=== PATIENT | male | born 1935 | race Caucasian/White ===

== ENCOUNTER 2020-02-23 11:03 | Inpatient (IN) | payer MEDICARE, OTHER, SELFPAY ==
[2020-02-23] VITALS (18 sets, daily range): BP systolic 133–143; BP diastolic 56–73; PULSE 68–83; RESP 14–22; TEMP 36.8–37.4; O2SAT 78–95
--- NOTE | ~2020-02-23 | XR_ITS ---
XR chest 1V portable DATE: 02/29/2020 09:00 INDICATION: Shortness of breath. Covid-positive. TECHNIQUE: Portable AP chest on 02/29/2020 at 0853 hours COMPARISON: 02/28/2020 portable AP chest at 0817 hours FINDINGS: Diffuse bilateral airspace disease relatively sparing right apex and left upper lung, stabl e or mildly increased in severity since 02/28/2020. Borderline or increased heart size. Aortic calcification and mild unfolding. No pleural effusion. Surgical clips, right axillary area consistent with prior axillary node dissection. Diffuse osteopenia. Degenerative spurring of the thoracic spine. IMPRESSION: Persistent extensive bilateral pulmonary infiltrates, stable or mildly increased since 02/28/2020 Reviewed, dictated and finalized at location B. P LEADER IMPRESSION: Persistent extensive bilateral pulmonary infiltrates, stable or mil dly increased since 02/28/2020
--- NOTE | ~2020-02-23 | XR_ITS ---
XR chest 1V portable 02/28/2020 08:25 Indication: Covid. Pneumonia. Procedure: AP portable chest Comparison: Comparison to multiple prior studies sequentially, with oldest reviewed study dated 02/2020. Findings: Heart size normal. Diffuse bilateral airspace disease unchanged. There is atherosclerosis. No significant pleural effusion or pneumothorax. Impression: 1: Stable diffuse bilateral airspace disease, edema versus pneumonia. Reviewed, dictated and finalized at location A. /R INSTRUCTOR Impression: 1: Stable diffuse bilateral airspace disease, edema versus pneumonia.
--- NOTE | ~2020-02-23 | XR_ITS ---
EXAMINATION: XR chest 1V portable DATE: 02/25/2020 01:36 INDICATION: Desaturations TECHNIQUE: frontal view of the chest was obtained. COMPARISON: Chest radiograph dated 02/23/2020 FINDINGS: Cardiomegaly with pulmonary vascular congestion. Subtle groundglass opacities throughout both lungs w ith central batwing configuration favoring pulmonary edema over pneumonia. Pleural parenchymal scarri ng at the apices, moderate on the right and mild on the left. No pleural effusion or pneumothorax. Co ronary artery stenting. Multiple surgical clips at the right axilla. IMPRESSION: 1. Cardiomegaly with pulmonary vascular congestion and groundglass opacities throughout both lungs wi th batwing configuration favoring congestive heart failure and mild pulmonary edema over pneumonia. Reviewed, dictated and finalized at location A. TRIMMER IMPRESSION: 1. Cardiomegaly with pulmonary vascular congestion and groundglass opacities th roughout both lungs with batwing configuration favoring congestive heart failur e and mild pulmonary edema over pneumonia.
--- NOTE | ~2020-02-23 | US_ITS ---
EXAMINATION: US venous doppler LE EXAM DATE: 02/26/2020 17:41 INDICATION: Left thigh pain, COVID +. Left leg pain. TECHNIQUE: Multiple grayscale, color flow and Doppler images of the lower extremity deep venous syste ms bilaterally were obtained and reviewed. There is no prior study for comparison. FINDINGS: Right side: The right common femoral, femoral and profunda veins demonstrate normal color flow, respi ratory variation, augmentation and compressibility. Compressibility, color flow confirmed within the right popliteal, posterior tibial, peroneal, and greater saphenous veins. Left side: The left common femoral, femoral and profunda veins demonstrate normal color flow, respira tory variation, augmentation and compressibility. Compressibility, color flow confirmed within the l eft popliteal, posterior tibial, peroneal, and greater saphenous veins. IMPRESSION: 1. No lower extremity deep venous thrombosis bilaterally. Reviewed, dictated and finalized at location A. F SERVICES MANAGER
--- NOTE | ~2020-02-23 | XR_ITS ---
EXAMINATION: XR chest 1V portable DATE: 02/23/2020 12:06 INDICATION: COVID positive. Shortness of breath. TECHNIQUE: frontal view of the chest was obtained. COMPARISON: None FINDINGS: Groundglass and reticular opacities the bilateral mid and lower lung zones. There is also bronchial w all thickening/peribronchial cuffing. No pleural effusion or pneumothorax. The cardiomediastinal silh ouette is normal. Surgical clips at the right axilla. IMPRESSION: 1. Interstitial and airspace opacities in the bilateral mid and lower lung zones with bronchial wall thickening/peribronchial cuffing. Differential would include pulmonary edema or pneumonia. Reviewed, dictated and finalized at location A. ON AND TIME STUDY TEACHER IMPRESSION: 1. Interstitial and airspace opacities in the bilateral mid and lower lung zone s with bronchial wall thickening/peribronchial cuffing. Differential would incl ude pulmonary edema or pneumonia.
--- NOTE | 2020-02-23 11:17 | ECG_ITS ---
Measurements Intervals [place] Rate: 82 P: 32 WI: 245 QRS: 10 QRSD: 91 T: 29 QT: 366 QTc: 429 Interpretive Statements SINUS RHYTHM WITH FIRST DEGREE AV BLOCK BORDERLINE R WAVE PROGRESSION, ANTERIOR LEADS CONSIDER INFERIOR INFARCT, AGE INDETERMINATE BORDERLINE ST ABNORMALITY- HIGH LATERAL LEADS ABNORMAL ECG Electronically Signed On 02-23-2020 15:15:05 ELECTRICIAN SUPERVISOR by Clifton De La Rosa D.O.
[2020-02-23 11:39] LABS: Alveolar/Arterial O2 Gradient 119.2 mmHg; Base Excess ABG -1.4 mEq/l (+/-2.0); Carboxyhemoglobin 0.8 % THb (0-2.0); Fractional Inspired Oxygen 30 %; HCO3 ABG 20.7 mEq/l (22.0-26.0); Methemoglobin ABG 0.2 %THb (0-1.5); Oxygen Content ABG 18.3 %vol (16.0-22.0); Oxygen Saturation ABG 93.6 % (95.0-100.0); Oxyhemoglobin 91.8 % THb (90.0-100.0); PCO2 ABG 28.1 mmHg (35.0-45.0); PO2 ABG 61.7 mmHg (80.0-100.0); PO2 FiO2 Ratio Arterial Blood 2.06 %; Reduced Hemoglobin 7.2 %THb (0-5.0); Total Hemoglobin 14.2 g/dL (12.0-18.0); pH ABG 7.485 (7.350-7.450)
[2020-02-23 11:40] LABS: Device NASAL CANNULA; Liters per Minute 2.5 LPM; Modified Allen's Test Pass; Site Drawn LEFT RADIAL
[2020-02-23 11:58] LABS: Hematocrit 39.5 % (42.0-52.0); Hemoglobin 13.8 g/dL (14.0-18.0); Immature Granulocyte Absolute 0.02 K/mm3 (0.00-0.031); Immature Granulocyte Percent A 0.4 % (0-0.5); Immature Platelet Fraction Pct 5.3 % (0.9-11.2); Lymphocytes Absolute Auto 0.39 K/mm3 (0.9-3.2); Lymphocytes Percent Auto 8.4 % (18.3-44.2); Mean Corpuscular HGB Conc 34.9 g/dl (32-36); Mean Corpuscular Hemoglobin 30.4 pg (26-34); Mean Platelet Volume 11.1 fl (7.4-10.4); Monocytes Absolute Auto 0.5 K/mm3 (0.1-0.6); Monocytes Percent Auto 10.5 % (2.6-8.5); Neutrophils Absolute Auto 3.8 K/mm3 (1.3-6.7); Neutrophils Percent Auto 80.7 % (45.5-73.1); Platelet Count Result 118 k/mm3 (150-375); Red Blood Count 4.54 M/mm3 (4.6-6.20); Red Cell Distribution Width 12.5 % (11.5-14.5); White Blood Count 4.7 K/mm3 (4.5-10.0)
[2020-02-23 12:11] LABS: Anion Gap 9 mmol/L (8-16); Blood Urea Nitrogen 31 mg/dL (9-20); Calcium 8.4 mg/dL (8.4-10.2); Carbon Dioxide 26 mmol/L (22-30); Chloride 97 mmol/L (98-107); Estimated CRCL calculation 37 ml/min; Estimated Glomerular Filt Rate 53; Glucose 282 mg/dL (75-110); Potassium 3.9 mmol/L (3.4-5.0); Sodium 132 mmol/L (137-145)
[2020-02-23 12:12] LABS: Lactic Acid Reflex 3.1 mmol/L (0.7-2.1)
[2020-02-23 12:27] LABS: Burr Cells 2+ (NORMAL); Ovalocytes 1+ (NORMAL); Platelet Estimate Decreased (Adequate)
[2020-02-23 12:38] LABS: NT Pro B Type Natriuretic Pept 578 PG/ML (5-100)
--- NOTE | 2020-02-23 13:44 | ED.SOB ---
HPI - SOB/Dyspnea General Chief Complaint: Shortness of Breath/Dyspnea Stated Complaint: Covid +, SOB Time Seen by Provider: 02/23/20 12:05 History of Present Illness HPI Narrative: Patient is an 84-year-old male who presents ER with cough and shortness of breath. Patient has history of COPD, diabetes, and hypertension. Reports on Karl Belkis he began to feel ill. He was developing cough and mild shortness of breath. It worsened so he was tested for COVID-19 and was positive on 02/20. Over the last 2 days his ability. Has significantly declined he is short of breath at rest and with any sort of exertion. No improvement with breathing treatments at home. Endorses fevers and chills. No chest pain or chest pressure. No known sick contacts. Related Data Home Medications Medication Instructions Recorded Confirmed Adult One Daily Multivitamin 1 tablet PO DAILY 02/23/20 02/23/20 Flonase 1 spray EACHNARE DAILY 02/23/20 02/23/20 ProAir HFA 2 puff Q4-6H PRN 02/23/20 02/23/20 Vitamin D3 1 tablet PO DAILY 02/23/20 02/23/20 atenolol 12.5 mg PO DAILY 02/23/20 02/23/20 atorvastatin 40 mg PO DAILY 02/23/20 02/23/20 brimonidine 1 drp OPHTHALMIC (EYE) BID 02/23/20 02/23/20 clopidogrel [Plavix] 75 mg PO DAILY 02/23/20 02/23/20 finasteride 0.5 mg PO DAILY 02/23/20 02/23/20 fluticasone propion-salmeterol 1 inh INHALATION Q12H 02/23/20 02/23/20 [Advair Diskus] hydrochlorothiazide 25 mg PO DAILY 02/23/20 02/23/20 latanoprost 1 drp OPHTHALMIC (EYE) HS 02/23/20 02/23/20 losartan 100 mg PO QPM 02/23/20 02/23/20 melatonin 5 mg PO HS PRN 02/23/20 02/23/20 metformin 500 mg PO BIDWM 02/23/20 02/23/20 nitroglycerin [Nitrostat] 0.4 mg SUBLINGUAL Q5M PRN 02/23/20 02/23/20 omeprazole 40 mg PO DAILY 02/23/20 02/23/20 Allergies Allergy/AdvReac Type Severity Reaction Status Date / Time atropine Allergy Unknown Verified 02/23/20 16:34 Review of Systems Review of Systems: All systems reviewed & are unremarkable except as noted in HPI and below Constitutional: Constitutional: Reports chills, Reports fatigue and Reports fever(s) ENT: Denies nasal congestion and Denies sore throat Cardiovascular: Cardiovascular: Denies chest pain and Denies radiating jaw, neck or arm pain Respiratory: Respiratory: Reports cough, Reports dyspnea and Reports wheezing Gastrointestinal: Gastrointestinal: Denies abdominal pain, Denies nausea and Denies vomiting PMFSH Past Medical History Medical History (Updated 02/23/20 @ 13:47 by Corbin Ny MD) BPH (benign prostatic hyperplasia) COPD (chronic obstructive pulmonary disease) Coronary artery disease Diabetes GERD (gastroesophageal reflux disease) Hypertension Family History Family History (Updated 02/23/20 @ 16:13 by Diana Mera RN) Mother Heart disease Father Skin cancer Social History Social History (Updated 02/23/20 @ 13:47 by Corbin Ny MD) Smoking status: Never smoker Alcohol intake: never Substance use: never Gender identity (if verbalized by the patient): Male Sexual Orientation (if Verbalized by the Patient): Straight or Heterosexual Spiritual care concerns: No Exam Narrative: Exam Narrative: GENERAL: Uncomfortable-appearing, well-nourished, and in no acute distress. HEAD: Normocephalic, atraumatic. EYES: PERRL and EOMI. CHEST: Bibasilar crackles. No respiratory distress. HEART: Regular rate and rhythm. Normal peripheral pulses. ABDOMEN: Soft, nontender, nondistended. EXTREMITIES: Normal range of motion. 2+ edema. SKIN: Warm, dry, no rash. NEURO: Alert and oriented x3. PSYCH: Normal mood and affect. Course Course Emergency Course: Admit to hospitalist. Satting well on nasal cannula. Will start dexamethasone. Vital Signs Vital signs: Vital Signs Pulse Rate 80 02/23/20 11:17 Respiratory Rate 14 02/23/20 11:17 Pulse Oximetry 94 02/23/20 11:17 Temperature 98.3 F 02/23/20 20:00 Pulse Rate 77 02/23/20 20:00 Respiratory Rate
[2020-02-23] MEDS: ACETAMINOPHEN 325 MG TABLET 650 MG PO (14:26)
[2020-02-23] MEDS: DEXAMETHASONE SOD PHOS INJ 4 MG/ML VIAL 6 MG IV PUSH (14:27)
[2020-02-23 14:54] LABS: Reflex Lactic Acid Yes or No Add Lactic
--- NOTE | 2020-02-23 16:09 | ADMGEN ---
This patient, Benedict Kaur, was admitted to [facility] Surg Room 328-01. Patient/family oriented to hospital policies and general routines including ID bracelet, bed and alarms, visiting hours, pain management, procedures, bathroom and other care routines, personal items, smoking policy, room service/diet, and visiting hours. Information on how to activate the Rapid Response Team has been discussed. Patient/Family are encouraged to report perceived risks to care and to ask questions if they do not understand what they are told or what they should do.
[2020-02-23 17:00] LABS: Lactic Acid 1.6 mmol/L (0.7-2.1)
--- NOTE | 2020-02-23 23:48 | PM.IMHP ---
H&P: HPI History of Present Illness Date/Time: 02/23/20 23:48 Chief Complaint: Shortness of breath Narrative: Benedict Kaur is a 84 year old male who lives home alone and has been self quarantine. 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 Patient lives at [facility] [place]. The patient came to the emergency room because he was more short of breath. The patient does have history of COPD diabetes and hypertension. The patient stated that he started to feel ill on [place] Belkis. He developed a cough and mild shortness of breath. The patient tested positive for COVID-19 on 02/21/2020. Patient has not had any improvement is breathing with treatments at home. He has had fever and chills. No chest pain or palpitations. No nausea vomiting or diarrhea. Was noted to be 78 at 1 time. Otherwise is oxygen level is anywhere from 90-94%. Patient was placed on 2 L per nasal cannula. He was started on Decadron IV. Interstitial and airspace opacities in the bilateral mid and lower lung zones with bronchial wall thickening peribronchial cuffing. Differential would be including pulmonary edema or pneumonia. The patient is also had history he a having a right upper lobectomy. The patient is able to lay flat. 7.485. CO2 was 28.1. PO2 was 61.7. His blood sugar was noted to be 282. Lactic was 3.1 repeat was 1.6. Patient was started on Decadron in the emergency room. Patient is being admitted to inpatient status on the date of service 02/23/2020. Review of Systems Review of Systems: All systems reviewed & are unremarkable except as noted in HPI and below Constitutional: Constitutional: Reports as per HPI and Reports no additional constitutional complaints Eyes: Eyes: Reports as per HPI and Reports no additional eye complaints ENT: Reports system reviewed and no additional complaints, except as documented and Reports Normal hearing present Cardiovascular: Cardiovascular: Reports no additional cardiovascular complaints Respiratory: Respiratory: Reports no additional respiratory complaints and Reports no additional respiratory complaints Gastrointestinal: Gastrointestinal: Reports as per HPI and Reports no additional gastrointestinal complaints Musculoskeletal: Musculoskeletal: Reports no additional musculoskeletal complaints Integumentary/Breasts: Skin/Breast: Reports system reviewed and no additional complaints, except as docu and Reports as per HPI Neurologic: Reports system reviewed and no additional complaints, except as documented, Reports as per HPI and Reports Normal hearing present Psychiatric: Psychiatric: Reports no additional psychiatric complaints and Reports as per HPI Endocrine: Endocrine: Reports no additional endocrine complaints Hematologic/Lymphatic: Hematologic/Lymphatic: Reports no additional hematologic/lymphatic complaints Allergic/Immunologic: Allergic/Immunologic: Reports no additional allergic/immunologic complaints [facility] Past Medical History Medical History (Updated 02/24/20 @ 00:10 by Deepa Abad NP) BPH (benign prostatic hyperplasia) Chronic GERD COPD (chronic obstructive pulmonary disease) Coronary artery disease Diabetes GERD (gastroesophageal reflux disease) Glaucoma History of CVA (cerebrovascular accident) Hyperlipidemia Hypertension Melanoma Surgical History Surgical History (Updated 02/24/20 @ 00:10 by Deepa Abad NP) Cataract extraction status Bilateral H/O angioplasty 1994 and 1995. 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
[2020-02-24] VITALS (10 sets, daily range): BP systolic 112–147; BP diastolic 49–71; PULSE 57–70; RESP 20–22; TEMP 36.2–36.7; O2SAT 90–94
[2020-02-24 00:23] LABS: Alanine Aminotransferase 25 U/L (4-50)
[2020-02-24] MEDS: LATANOPROST 0.005% OP SOLN 2.5 ML BTL 1 DROP EACH EYE ×2 (01:27→22:17)
[2020-02-24] MEDS: REMDESIVIR 200 MG/NS 250 ML 200 MG/250 ML BAG 250 MG IVPB (01:27)
[2020-02-24] MEDS: LOSARTAN POTASSIUM 100 MG TABLET PO ×2 (01:27→18:11)
[2020-02-24] MEDS: guaiFENesin/DEXTROMETHORPHAN 10 ML UDC PO ×3 (01:28→18:08)
[2020-02-24] MEDS: MELATONIN 5 MG TABLET PO (01:38)
[2020-02-24 06:35] LABS: Hematocrit 38.7 % (42.0-52.0); Hemoglobin 13.2 g/dL (14.0-18.0); Immature Granulocyte Absolute 0.01 K/mm3 (0.00-0.031); Immature Granulocyte Percent A 0.2 % (0-0.5); Immature Platelet Fraction Pct 5.9 % (0.9-11.2); Lymphocytes Absolute Auto 0.38 K/mm3 (0.9-3.2); Lymphocytes Percent Auto 8.6 % (18.3-44.2); Mean Corpuscular HGB Conc 34.1 g/dl (32-36); Mean Corpuscular Hemoglobin 29.5 pg (26-34); Mean Corpuscular Volume 86.4 fl (80-100); Mean Platelet Volume 10.9 fl (7.4-10.4); Monocytes Absolute Auto 0.8 K/mm3 (0.1-0.6); Monocytes Percent Auto 17.5 % (2.6-8.5); Neutrophils Absolute Auto 3.2 K/mm3 (1.3-6.7); Neutrophils Percent Auto 73.7 % (45.5-73.1); Platelet Count Result 118 k/mm3 (150-375); Red Blood Count 4.48 M/mm3 (4.6-6.20); Red Cell Distribution Width 12.4 % (11.5-14.5); White Blood Count 4.4 K/mm3 (4.5-10.0)
[2020-02-24] MEDS: ACETAMINOPHEN 325 MG TABLET 650 MG PO (07:23)
[2020-02-24 08:13] LABS: Glucose Point of Care 195 (65-105)
[2020-02-24 08:26] LABS: Alanine Aminotransferase 24 U/L (4-50); Albumin Level 3.2 g/dL (3.5-5.1); Alkaline Phosphatase 57 U/L (38-126); Anion Gap 7 mmol/L (8-16); Aspartate Amino Transferase 73 U/L (17-59); Bilirubin,Total 0.7 mg/dL (0.2-1.3); Blood Urea Nitrogen 33 mg/dL (9-20); CRP 15.5 mg/dL (<1.0); Calcium 8.1 mg/dL (8.4-10.2); Carbon Dioxide 26 mmol/L (22-30); Chloride 100 mmol/L (98-107); Estimated CRCL calculation 40 ml/min; Estimated Glomerular Filt Rate 58; Glucose 220 mg/dL (75-110); Magnesium 1.7 mg/dL (1.6-2.3); Potassium 4.4 mmol/L (3.4-5.0); Sodium 133 mmol/L (137-145)
[2020-02-24] MEDS: MAGNESIUM SULF 2 GM/WATER 50ML 2 GM/50 ML BAG IVPB (09:07)
[2020-02-24] MEDS: BRIMONIDINE TARTRATE 0.15% 5 ML OPHTH SOLN 1 DROP EACH EYE ×2 (09:08→18:09)
[2020-02-24] MEDS: hydroCHLOROthiazide 25 MG TABLET PO (09:08)
[2020-02-24] MEDS: ENOXAPARIN 40 MG/0.4 ML SYRINGE SUB-Q ×2 (09:08→22:17)
[2020-02-24] MEDS: FLUTICASONE PROPIONATE 0.05% NA SPR 16 GM BTL (*BKC) 1 SPRAY NASAL (09:08)
[2020-02-24] MEDS: PANTOPRAZOLE 40 MG TABLET PO (09:09)
[2020-02-24] MEDS: MULTIVITAMINS THERAPEUTIC TAB (*BKC) 1 TABLET PO (09:09)
[2020-02-24] MEDS: DEXAMETHASONE SOD PHOS INJ 4 MG/ML VIAL 6 MG IV PUSH (09:09)
[2020-02-24] MEDS: CLOPIDOGREL BISULFATE 75 MG TABLET PO (09:09)
[2020-02-24 09:48] LABS: Lactate Dehydrogenase 2035 U/L (313-618)
[2020-02-24] MEDS: atenoloL 12.5 MG TABLET PO (10:56)
[2020-02-24] MEDS: CHOLECALCIFEROL 1,000 UNITS TABLET 3000 UNITS PO (10:57)
[2020-02-24 11:49] LABS: Glucose Point of Care 235 (65-105)
[2020-02-24] MEDS: INSULIN ASPART (*BKC) 100 UNITS/ML SUB-Q ×2 (13:21→18:10)
[2020-02-24] MEDS: FLUTICASONE/SALMETEROL 115-21 MCG INHALER 1 PUFF 2 PUFF INHALATION ×2 (13:23→20:21)
--- NOTE | 2020-02-24 13:27 | P.PNIM_ITS ---
Progress Note: A&P Assessment and Plan (1) COVID-19: Code(s): U07.1 - COVID-19 Status: Acute Assessment and Plan: * Patient presents with worsening shortness of breath, hypoxia; CXR shows NIALL infiltrates, COVID positive 02/21/20. * Continue dexamethasone (day 2); remdesivir (day 2). * Continue supplemental O2 and wean as tolerated to keep O2 saturations > 90%. * Continue supportive care with Tylenol for fevers, albuterol MDI, Robitussin, incentive spirometer. (2) Acute respiratory failure: Qualifiers: Respiratory failure complication: hypoxia Qualified Code(s): J96.01 - Acute respiratory failure with hypoxia Code(s): J96.00 - Acute respiratory failure, unspecified whether with hypoxia or hypercapnia Status: Acute Assessment and Plan: * Secondary to COVID pneumonia. See above. 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 See above. (4) Diabetes: Qualifiers: Diabetes mellitus type: type 2 Diabetes mellitus technical account representative insulin use: without technical account representative use Diabetes mellitus complication status: without complication Qualified Code(s): E11.9 - Type 2 diabetes mellitus without complications Code(s): E11.9 - Type 2 diabetes mellitus without complications Status: Chronic Assessment and Plan: * Hgb A1c 7.0. Continue home metformin. Continue to monitor with accu-cheks and adjust treatment as needed, cover with SSI. (5) BPH (benign prostatic hyperplasia): Qualifiers: Lower urinary tract symptom presence: symptoms absent Qualified Code(s ): N40.0 - Benign prostatic hyperplasia without lower urinary tract symptoms Code(s): N40.0 - Benign prostatic hyperplasia without lower urinary tract symptoms Status: Chronic Assessment and Plan: * Continue with finasteride (6) Coronary artery disease: Qualifiers: Coronary Disease-Associated Artery/Lesion type: [place] artery [place] vs. transplanted heart: [place] heart Associated angina: without angina Qualified Code(s): I25.10 - Atherosclerotic heart disease of [place] coronary artery without angina pectoris Code(s): I25.10 - Atherosclerotic heart disease of [place] coronary artery without angina pectoris Status: Chronic Assessment and Plan: * History of 2 coronary stents. Continue home Plavix. Stable, no chest pain. (7) Hypertension: Qualifiers: Hypertension type: essential hypertension Qualified Code(s): I10 - Essential (primary) hypertension Code(s): I10 - Essential (primary) hypertension Status: Chronic Assessment and Plan: * BP stable, on lower end. Continue with atenolol, losartan and hydrochlorothiazide. Monitor BP and adjust treatment as needed. (8) Hyperlipidemia: Qualifiers: Hyperlipidemia type: unspecified Qualified Code(s): E78.5 - Hyperlipidemia, unspecified Code(s): E78.5 - Hyperlipidemia, unspecified Status: Chronic Assessment and Plan: * Re
--- NOTE | 2020-02-24 13:27 | PM.IMPN ---
Progress Note: A&P Assessment and Plan (1) COVID-19: Code(s): U07.1 - COVID-19 Status: Acute Assessment and Plan: Patient presents with worsening shortness of breath, hypoxia; CXR shows NIALL infiltrates, COVID positive 02/21/20. Continue dexamethasone (day 2); remdesivir (day 2). Continue supplemental O2 and wean as tolerated to keep O2 saturations > 90%. Continue supportive care with Tylenol for fevers, albuterol MDI, Robitussin, incentive spirometer. (2) Acute respiratory failure: Qualifiers: Respiratory failure complication: hypoxia Qualified Code(s): J96.01 - Acute respiratory failure with hypoxia Code(s): J96.00 - Acute respiratory failure, unspecified whether with hypoxia or hypercapnia Status: Acute Assessment and Plan: Secondary to COVID pneumonia. See above. 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 See above. (4) Diabetes: Qualifiers: Diabetes mellitus type: type 2 Diabetes mellitus penitentiary insulin use: without intermediate frame tender use Diabetes mellitus complication status: without complication Qualified Code(s): E11.9 - Type 2 diabetes mellitus without complications Code(s): E11.9 - Type 2 diabetes mellitus without complications Status: Chronic Assessment and Plan: Hgb A1c 7.0. Continue home metformin. Continue to monitor with accu-cheks and adjust treatment as needed, cover with SSI. (5) BPH (benign prostatic hyperplasia): Qualifiers: Lower urinary tract symptom presence: symptoms absent Qualified Code(s): N40.0 - Benign prostatic hyperplasia without lower urinary tract symptoms Code(s): N40.0 - Benign prostatic hyperplasia without lower urinary tract symptoms Status: Chronic Assessment and Plan: Continue with finasteride (6) Coronary artery disease: Qualifiers: Coronary Disease-Associated Artery/Lesion type: [place] artery [place] vs. transplanted heart: [place] heart Associated angina: without angina Qualified Code(s): I25.10 - Atherosclerotic heart disease of [place] coronary artery without angina pectoris Code(s): I25.10 - Atherosclerotic heart disease of [place] coronary artery without angina pectoris Status: Chronic Assessment and Plan: History of 2 coronary stents. Continue home Plavix. Stable, no chest pain. (7) Hypertension: Qualifiers: Hypertension type: essential hypertension Qualified Code(s): I10 - Essential (primary) hypertension Code(s): I10 - Essential (primary) hypertension Status: Chronic Assessment and Plan: BP stable, on lower end. Continue with atenolol, losartan and hydrochlorothiazide. Monitor BP and adjust treatment as needed. (8) Hyperlipidemia: Qualifiers: Hyperlipidemia type: unspecified Qualified Code(s): E78.5 - Hyperlipidemia, unspecified Code(s): E78.5 - Hyperlipidemia, unspecified Status: Chronic Assessment and Plan: Resume home statin therapy. (9) Chronic GERD: Code(s): K21.9 - Gastro-esophageal reflux disease without esophagitis Status: Chronic Assessment and Plan: Stable, reports some indigestion. Continue PPI. Taylor RIVERS. Subjective Date/time seen: 02/24/20 1230
[2020-02-24] MEDS: ONDANSETRON INJ 4 MG/2 ML VIAL IV PUSH (16:23)
[2020-02-24 16:56] LABS: Glucose Point of Care 268 (65-105)
[2020-02-24] MEDS: metFORMIN HCL 500 MG TABLET PO (18:09)
[2020-02-24] MEDS: ALBUTEROL SULFATE (*SP) AEROSOL 1 PUFF 2 PUFF INHALATION (20:20)
[2020-02-24] MEDS: REMDESIVIR 100 MG/NS 250 ML 100 MG/250 ML BAG 250 MG IVPB (22:17)
[2020-02-24 22:52] LABS: Glucose Point of Care 195 (65-105)
[2020-02-25] VITALS (12 sets, daily range): BP systolic 100–157; BP diastolic 58–71; PULSE 59–86; RESP 20–22; TEMP 36.3–36.8; O2SAT 76–99
[2020-02-25] MEDS: guaiFENesin/DEXTROMETHORPHAN 10 ML UDC PO ×3 (00:29→14:53)
[2020-02-25 01:42] LABS: Base Excess ABG -4.2 mEq/l (+/-2.0); Fractional Inspired Oxygen 44 %; HCO3 ABG 18.7 mEq/l (22.0-26.0); Oxygen Content ABG 15.8 %vol (16.0-22.0); Oxyhemoglobin 82.3 % THb (90.0-100.0); PCO2 ABG 28.8 mmHg (35.0-45.0); PO2 FiO2 Ratio Arterial Blood 1.02 %; Total Hemoglobin 13.7 g/dL (12.0-18.0); pH ABG 7.431 (7.350-7.450)
[2020-02-25 01:45] LABS: PO2 ABG 44.9 mmHg (80.0-100.0)
[2020-02-25 01:46] LABS: Modified Allen's Test Pass; Site Drawn LEFT RADIAL
[2020-02-25 01:47] LABS: Device NASAL CANNULA
[2020-02-25] MEDS: ALBUTEROL SULFATE (*SP) INHALER 2 PUFF INHALATION ×4 (02:09→21:06)
[2020-02-25 04:35] LABS: Alveolar/Arterial O2 Gradient 221.6 mmHg; Base Excess ABG -2.1 mEq/l (+/-2.0); Fractional Inspired Oxygen 44 %; HCO3 ABG 21.5 mEq/l (22.0-26.0); Oxygen Content ABG 16.7 %vol (16.0-22.0); Oxygen Saturation ABG 89.1 % (95.0-100.0); Oxyhemoglobin 87.3 % THb (90.0-100.0); PCO2 ABG 33.5 mmHg (35.0-45.0); PO2 ABG 53.9 mmHg (80.0-100.0); PO2 FiO2 Ratio Arterial Blood 1.23 %; Total Hemoglobin 13.6 g/dL (12.0-18.0); pH ABG 7.426 (7.350-7.450)
[2020-02-25 04:37] LABS: Device NASAL CANNULA; Modified Allen's Test Pass; Site Drawn LEFT RADIAL
[2020-02-25 06:06] LABS: Basophils Percent Auto 0.1 % (0.2-1.2); Hematocrit 38.9 % (42.0-52.0); Hemoglobin 13.6 g/dL (14.0-18.0); Immature Granulocyte Absolute 0.07 K/mm3 (0.00-0.031); Immature Granulocyte Percent A 0.7 % (0-0.5); Lymphocytes Absolute Auto 0.53 K/mm3 (0.9-3.2); Lymphocytes Percent Auto 5.5 % (18.3-44.2); Mean Corpuscular Hemoglobin 30.1 pg (26-34); Mean Corpuscular Volume 86.1 fl (80-100); Mean Platelet Volume 10.4 fl (7.4-10.4); Monocytes Absolute Auto 1.6 K/mm3 (0.1-0.6); Monocytes Percent Auto 16.6 % (2.6-8.5); Neutrophils Absolute Auto 7.4 K/mm3 (1.3-6.7); Neutrophils Percent Auto 77.1 % (45.5-73.1); Platelet Count Result 168 k/mm3 (150-375); Red Blood Count 4.52 M/mm3 (4.6-6.20); Red Cell Distribution Width 12.6 % (11.5-14.5); White Blood Count 9.6 K/mm3 (4.5-10.0)
[2020-02-25 06:35] LABS: Alanine Aminotransferase 37 U/L (4-50); Albumin Level 3.3 g/dL (3.5-5.1); Alkaline Phosphatase 74 U/L (38-126); Anion Gap 7 mmol/L (8-16); Aspartate Amino Transferase 87 U/L (17-59); Bilirubin,Total 0.6 mg/dL (0.2-1.3); Blood Urea Nitrogen 39 mg/dL (9-20); CRP 6.3 mg/dL (<1.0); Calcium 8.2 mg/dL (8.4-10.2); Carbon Dioxide 28 mmol/L (22-30); Chloride 100 mmol/L (98-107); Estimated CRCL calculation 37 ml/min; Estimated Glomerular Filt Rate 53; Glucose 195 mg/dL (75-110); Phosphorus 3.6 mg/dL (2.5-4.5); Potassium 4.1 mmol/L (3.4-5.0); Sodium 135 mmol/L (137-145)
[2020-02-25 08:22] LABS: Glucose Point of Care 172 (65-105)
[2020-02-25] MEDS: FLUTICASONE/SALMETEROL 115-21 MCG (*SP) INHALER 2 PUFF INHALATION ×2 (08:57→21:06)
[2020-02-25] MEDS: CHOLECALCIFEROL 1,000 UNITS TABLET 3000 UNITS PO (09:00)
[2020-02-25] MEDS: DEXAMETHASONE SOD PHOS INJ 4 MG/ML VIAL 6 MG IV PUSH (09:00)
[2020-02-25] MEDS: ENOXAPARIN 40 MG/0.4 ML SYRINGE SUB-Q ×2 (09:00→21:06)
[2020-02-25] MEDS: hydroCHLOROthiazide 25 MG TABLET PO (09:00)
[2020-02-25] MEDS: ATORVASTATIN 40 MG TABLET PO (09:00)
[2020-02-25] MEDS: MULTIVITAMINS THERAPEUTIC TAB (*BKC) 1 TABLET PO (09:01)
[2020-02-25] MEDS: atenoloL 12.5 MG TABLET PO (09:01)
[2020-02-25] MEDS: PANTOPRAZOLE 40 MG TABLET PO (09:01)
[2020-02-25] MEDS: BRIMONIDINE TARTRATE 0.15% 5 ML OPHTH SOLN 1 DROP EACH EYE ×2 (09:01→17:59)
[2020-02-25] MEDS: FINASTERIDE 5 MG TABLET PO (09:01)
[2020-02-25] MEDS: metFORMIN HCL 500 MG TABLET PO ×2 (09:01→17:59)
[2020-02-25] MEDS: CLOPIDOGREL BISULFATE 75 MG TABLET PO (09:02)
[2020-02-25] MEDS: FLUTICASONE PROPIONATE 0.05% NA SPR 16 GM BTL (*BKC) 1 SPRAY NASAL (09:02)
[2020-02-25] MEDS: ACETAMINOPHEN 325 MG TABLET 650 MG PO (10:59)
[2020-02-25] MEDS: BENZONATATE 100 MG CAPSULE PO ×3 (10:59→17:59)
[2020-02-25 12:16] LABS: Glucose Point of Care 207 (65-105)
[2020-02-25] MEDS: INSULIN ASPART (*BKC) 100 UNITS/ML SUB-Q ×2 (12:58→18:00)
--- NOTE | 2020-02-25 13:34 | P.PNIM_ITS ---
Progress Note: A&P Assessment and Plan (1) COVID-19: Code(s): U07.1 - COVID-19 Status: Acute Assessment and Plan: * Patient presents with worsening shortness of breath, hypoxia; CXR shows NIALL infiltrates, COVID positive 02/21/20. * Continue dexamethasone (day 3); remdesivir (day 3). * Continue supplemental O2 and wean as tolerated to keep O2 saturations near 90- 95%. * Oxygen needs increased up to 6L high flow NC today. * Continue supportive care with Tylenol for fevers, albuterol MDI, Robitussin, incentive spirometer. * Repeat CXR with possible pulmonary edema; give Lasix IV x1 and monitor, may need more tomorrow. (2) Acute respiratory failure: Qualifiers: Respiratory failure complication: hypoxia Qualified Code(s): J96.01 - Acute respiratory failure with hypoxia Code(s): J96.00 - Acute respiratory failure, unspecified whether with hypoxia or hypercapnia Status: Acute Assessment and Plan: * Secondary to COVID pneumonia. See above. 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 See above. (4) Diabetes: Qualifiers: Diabetes mellitus type: type 2 Diabetes mellitus fpc insulin use: without terminal supervisor use Diabetes mellitus complication status: without complication Qualified Code(s): E11.9 - Type 2 diabetes mellitus without complications Code(s): E11.9 - Type 2 diabetes mellitus without complications Status: Chronic Assessment and Plan: * Hgb A1c 7.0. Continue home metformin. Continue to monitor with accu-cheks and adjust treatment as needed, cover with SSI. (5) BPH (benign prostatic hyperplasia): Qualifiers: Lower urinary tract symptom presence: symptoms absent Qualified Code(s): N40.0 - Benign prostatic hyperplasia without lower urinary tract symptoms Code(s): N40.0 - Benign prostatic hyperplasia without lower urinary tract symptoms Status: Chronic Assessment and Plan: * Continue with finasteride (6) Coronary artery disease: Qualifiers: Coronary Disease-Associated Artery/Lesion type: [place] artery [place] vs. transplanted heart: [place] heart Associated angina: without angina Qualified Code(s): I25.10 - Atherosclerotic heart disease of [place] coronary artery without angina pectoris Code(s): I25.10 - Atherosclerotic heart disease of [place] coronary artery without angina pectoris Status: Chronic Assessment and Plan: * History of 2 coronary stents. Continue home Plavix. Stable, no chest pain. (7) Hypertension: Qualifiers: Hypertension type: essential hypertension Qualified Code(s): I10 - Essential (primary) hypertension Code(s): I10 - Essential (primary) hypertension Status: Chronic Assessment and Plan: * BPs reviewed, variable today. Continue with atenolol, losartan and hydrochlorothiazide. Monitor BP and adjust treatment as needed. (8) Hyperlipidemia: Qualifiers: Hyperlipidemia type: unspecified
--- NOTE | 2020-02-25 13:34 | PM.IMPN ---
Progress Note: A&P Assessment and Plan (1) COVID-19: Code(s): U07.1 - COVID-19 Status: Acute Assessment and Plan: Patient presents with worsening shortness of breath, hypoxia; CXR shows NIALL infiltrates, COVID positive 02/21/20. Continue dexamethasone (day 3); remdesivir (day 3). Continue supplemental O2 and wean as tolerated to keep O2 saturations near 90-95%. Oxygen needs increased up to 6L high flow NC today. Continue supportive care with Tylenol for fevers, albuterol MDI, Robitussin, incentive spirometer. Repeat CXR with possible pulmonary edema; give Lasix IV x1 and monitor, may need more tomorrow. (2) Acute respiratory failure: Qualifiers: Respiratory failure complication: hypoxia Qualified Code(s): J96.01 - Acute respiratory failure with hypoxia Code(s): J96.00 - Acute respiratory failure, unspecified whether with hypoxia or hypercapnia Status: Acute Assessment and Plan: Secondary to COVID pneumonia. See above. 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 See above. 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 Continue home metformin. Continue to monitor with accu-cheks and adjust treatment as needed, cover with SSI. (5) BPH (benign prostatic hyperplasia): Qualifiers: Lower urinary tract symptom presence: symptoms absent Qualified Code(s): N40.0 - Benign prostatic hyperplasia without lower urinary tract symptoms Code(s): N40.0 - Benign prostatic hyperplasia without lower urinary tract symptoms Status: Chronic Assessment and Plan: Continue with finasteride (6) Coronary artery disease: Qualifiers: Coronary Disease-Associated Artery/Lesion type: [place] artery [place] vs. transplanted heart: [place] heart Associated angina: without angina Qualified Code(s): I25.10 - Atherosclerotic heart disease of [place] coronary artery without angina pectoris Code(s): I25.10 - Atherosclerotic heart disease of [place] coronary artery without angina pectoris Status: Chronic Assessment and Plan: History of 2 coronary stents. Continue home Plavix. Stable, no chest pain. (7) Hypertension: Qualifiers: Hypertension type: essential hypertension Qualified Code(s): I10 - Essential (primary) hypertension Code(s): I10 - Essential (primary) hypertension Status: Chronic Assessment and Plan: BPs reviewed, variable today. Continue with atenolol, losartan and hydrochlorothiazide. Monitor BP and adjust treatment as needed. (8) Hyperlipidemia: Qualifiers: Hyperlipidemia type: unspecified Qualified Code(s): E78.5 - Hyperlipidemia, unspecified Code(s): E78.5 - Hyperlipidemia, unspecified Status: Chronic Assessment and Plan: Resume home statin therapy. (9) Chronic GERD: Code(s): K21.9 - Gastro-esophageal reflux disease without esophagitis Status: Chronic Assessment an
[2020-02-25] MEDS: FUROSEMIDE INJ 40 MG/4 ML VIAL IV PUSH (14:52)
[2020-02-25 17:56] LABS: Glucose Point of Care 274 (65-105)
[2020-02-25] MEDS: LOSARTAN POTASSIUM 100 MG TABLET PO (18:00)
[2020-02-25] MEDS: LATANOPROST 0.005% OP SOLN 2.5 ML BTL 1 DROP EACH EYE (21:06)
[2020-02-25] MEDS: REMDESIVIR 100 MG/NS 250 ML 100 MG/250 ML BAG 250 MG IVPB (23:07)
[2020-02-25 23:08] LABS: Glucose Point of Care 206 (65-105)
[2020-02-26] VITALS (8 sets, daily range): BP systolic 139–166; BP diastolic 66–82; PULSE 60–86; RESP 20–22; TEMP 36.4–36.7; O2SAT 90–100
[2020-02-26] MEDS: ALBUTEROL SULFATE (*SP) INHALER 2 PUFF INHALATION ×4 (01:08→21:31)
[2020-02-26 08:15] LABS: Basophils Percent Auto 0.1 % (0.2-1.2); Hematocrit 40.8 % (42.0-52.0); Hemoglobin 14.2 g/dL (14.0-18.0); Lymphocytes Absolute Auto 0.71 K/mm3 (0.9-3.2); Lymphocytes Percent Auto 6.8 % (18.3-44.2); Mean Corpuscular HGB Conc 34.8 g/dl (32-36); Mean Corpuscular Hemoglobin 30.1 pg (26-34); Mean Corpuscular Volume 86.6 fl (80-100); Mean Platelet Volume 10.7 fl (7.4-10.4); Monocytes Percent Auto 18.6 % (2.6-8.5); Neutrophils Absolute Auto 7.7 K/mm3 (1.3-6.7); Neutrophils Percent Auto 73.5 % (45.5-73.1); Platelet Count Result 211 k/mm3 (150-375); Red Blood Count 4.71 M/mm3 (4.6-6.20); Red Cell Distribution Width 12.7 % (11.5-14.5); White Blood Count 10.5 K/mm3 (4.5-10.0)
[2020-02-26] MEDS: PANTOPRAZOLE 40 MG TABLET PO (08:20)
[2020-02-26] MEDS: MULTIVITAMINS THERAPEUTIC TAB (*BKC) 1 TABLET PO (08:20)
[2020-02-26] MEDS: FINASTERIDE 5 MG TABLET PO (08:20)
[2020-02-26] MEDS: CLOPIDOGREL BISULFATE 75 MG TABLET PO (08:20)
[2020-02-26] MEDS: BENZONATATE 100 MG CAPSULE PO ×3 (08:20→17:22)
[2020-02-26] MEDS: CHOLECALCIFEROL 1,000 UNITS TABLET 3000 UNITS PO (08:20)
[2020-02-26] MEDS: ATORVASTATIN 40 MG TABLET PO (08:20)
[2020-02-26] MEDS: ENOXAPARIN 40 MG/0.4 ML SYRINGE SUB-Q ×2 (08:20→21:32)
[2020-02-26] MEDS: metFORMIN HCL 500 MG TABLET PO ×2 (08:20→17:22)
[2020-02-26] MEDS: hydroCHLOROthiazide 25 MG TABLET PO (08:20)
[2020-02-26 08:21] LABS: Glucose Point of Care 197 (65-105)
[2020-02-26] MEDS: FLUTICASONE PROPIONATE 0.05% NA SPR 16 GM BTL (*BKC) 1 SPRAY NASAL (08:21)
[2020-02-26] MEDS: DEXAMETHASONE SOD PHOS INJ 4 MG/ML VIAL 6 MG IV PUSH (08:21)
[2020-02-26] MEDS: BRIMONIDINE TARTRATE 0.15% 5 ML OPHTH SOLN 1 DROP EACH EYE ×2 (08:21→17:23)
[2020-02-26] MEDS: atenoloL 12.5 MG TABLET PO (08:21)
[2020-02-26] MEDS: FLUTICASONE/SALMETEROL 115-21 MCG (*SP) INHALER 2 PUFF INHALATION ×2 (08:23→21:31)
[2020-02-26 08:29] LABS: Alanine Aminotransferase 44 U/L (4-50); Albumin Level 3.5 g/dL (3.5-5.1); Alkaline Phosphatase 89 U/L (38-126); Anion Gap 9 mmol/L (8-16); Aspartate Amino Transferase 64 U/L (17-59); Bilirubin,Total 0.9 mg/dL (0.2-1.3); Blood Urea Nitrogen 42 mg/dL (9-20); Calcium 8.5 mg/dL (8.4-10.2); Carbon Dioxide 24 mmol/L (22-30); Chloride 102 mmol/L (98-107); Estimated CRCL calculation 40 ml/min; Estimated Glomerular Filt Rate 58; Glucose 179 mg/dL (75-110); Magnesium 1.8 mg/dL (1.6-2.3); Phosphorus 3.5 mg/dL (2.5-4.5); Sodium 135 mmol/L (137-145)
[2020-02-26] MEDS: guaiFENesin/DEXTROMETHORPHAN 10 ML UDC PO ×3 (08:42→21:37)
[2020-02-26 12:36] LABS: Glucose Point of Care 282 (65-105)
[2020-02-26] MEDS: INSULIN ASPART (*BKC) 100 UNITS/ML SUB-Q ×2 (12:42→17:22)
--- NOTE | 2020-02-26 13:15 | P.PNIM_ITS ---
Progress Note: A&P Assessment and Plan (1) COVID-19: Code(s): U07.1 - COVID-19 Status: Acute Assessment and Plan: * Patient presents with worsening shortness of breath, hypoxia; CXR shows NIALL infiltrates, COVID positive 02/21/20. * Continue dexamethasone (day 4); remdesivir (day 4). * Continue supplemental O2 and wean as tolerated to keep O2 saturations near 90- 95%. * Continue supportive care with Tylenol for fevers, albuterol MDI, Robitussin, incentive spirometer. * Repeat CXR with possible pulmonary edema yesterday, treated with IV lasix x 1, add fluid restriction. (2) Acute respiratory failure: Qualifiers: Respiratory failure complication: hypoxia Qualified Code(s): J96.01 - Acute respiratory failure with hypoxia Code(s): J96.00 - Acute respiratory failure, unspecified whether with hypoxia or hypercapnia Status: Acute Assessment and Plan: * Secondary to COVID pneumonia. See above. 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 See above. 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 Continue home metformin. Continue to monitor with accu-cheks and adjust treatment as needed, cover with SSI. * Blood sugars a bit elevated, increase to moderate dose SSI. (5) BPH (benign prostatic hyperplasia): Qualifiers: Lower urinary tract symptom presence: symptoms absent Qualified Code(s): N40.0 - Benign prostatic hyperplasia without lower urinary tract symptoms Code(s): N40.0 - Benign prostatic hyperplasia without lower urinary tract symptoms Status: Chronic Assessment and Plan: * Continue with finasteride. (6) Coronary artery disease: Qualifiers: Coronary Disease-Associated Artery/Lesion type: [place] artery [place] vs. transplanted heart: [place] heart Associated angina: without angina Qualified Code(s): I25.10 - Atherosclerotic heart disease of [place] coronary artery without angina pectoris Code(s): I25.10 - Atherosclerotic heart disease of [place] coronary artery without angina pectoris Status: Chronic Assessment and Plan: * History of 2 coronary stents. Continue home Plavix. Stable, no chest pain. (7) Hypertension: Qualifiers: Hypertension type: essential hypertension Qualified Code(s): I10 - E ssential (primary) hypertension Code(s): I10 - Essential (primary) hypertension Status: Chronic Assessment and Plan: * BPs reviewed, variable today last 139/67. Continue with atenolol, losartan and hydrochlorothiazide. Monitor BP and adjust treatment as needed. (8) Hyperlipidemia: Qualifiers: Hyperli
--- NOTE | 2020-02-26 13:15 | PM.IMPN ---
Progress Note: A&P Assessment and Plan (1) COVID-19: Code(s): U07.1 - COVID-19 Status: Acute Assessment and Plan: Patient presents with worsening shortness of breath, hypoxia; CXR shows NIALL infiltrates, COVID positive 02/21/20. Continue dexamethasone (day 4); remdesivir (day 4). Continue supplemental O2 and wean as tolerated to keep O2 saturations near 90-95%. Continue supportive care with Tylenol for fevers, albuterol MDI, Robitussin, incentive spirometer. Repeat CXR with possible pulmonary edema yesterday, treated with IV lasix x 1, add fluid restriction. (2) Acute respiratory failure: Qualifiers: Respiratory failure complication: hypoxia Qualified Code(s): J96.01 - Acute respiratory failure with hypoxia Code(s): J96.00 - Acute respiratory failure, unspecified whether with hypoxia or hypercapnia Status: Acute Assessment and Plan: Secondary to COVID pneumonia. See above. 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 See above. (4) Diabetes: Qualifiers: Diabetes mellitus type: type 2 Diabetes mellitus [facility] insulin use: without [facility] use Diabetes mellitus complication status: without complication Qualified Code(s): E11.9 - Type 2 diabetes mellitus without complications Code(s): E11.9 - Type 2 diabetes mellitus without complications Status: Chronic Assessment and Plan: Hgb A1c 7.0. Continue home metformin. Continue to monitor with accu-cheks and adjust treatment as needed, cover with SSI. Blood sugars a bit elevated, increase to moderate dose SSI. (5) BPH (benign prostatic hyperplasia): Qualifiers: Lower urinary tract symptom presence: symptoms absent Qualified Code(s): N40.0 - Benign prostatic hyperplasia without lower urinary tract symptoms Code(s): N40.0 - Benign prostatic hyperplasia without lower urinary tract symptoms Status: Chronic Assessment and Plan: Continue with finasteride. (6) Coronary artery disease: Qualifiers: Coronary Disease-Associated Artery/Lesion type: [place] artery [place] vs. transplanted heart: [place] heart Associated angina: without angina Qualified Code(s): I25.10 - Atherosclerotic heart disease of [place] coronary artery without angina pectoris Code(s): I25.10 - Atherosclerotic heart disease of [place] coronary artery without angina pectoris Status: Chronic Assessment and Plan: History of 2 coronary stents. Continue home Plavix. Stable, no chest pain. (7) Hypertension: Qualifiers: Hypertension type: essential hypertension Qualified Code(s): I10 - Essential (primary) hypertension Code(s): I10 - Essential (primary) hypertension Status: Chronic Assessment and Plan: BPs reviewed, variable today last 139/67. Continue with atenolol, losartan and hydrochlorothiazide. Monitor BP and adjust treatment as needed. (8) Hyperlipidemia: Qualifiers: Hyperlipidemia type: unspecified Qualified Code(s): E78.5 - Hyperlipidemia, unspecified Code(s): E78.5 - Hyperlipidemia, unspecified Status: Chronic Assessment and Plan: Resume home statin therapy. (9) Chronic GERD: Code(s): K21.9 - Gastro-esophageal reflux disease without esophagitis Status: C
--- NOTE | 2020-02-26 17:19 | PM.IMPN ---
Subjective Date/time seen: 02/26/20 1200 Objective Data Vital Signs Vital Signs: Vital Signs - 24 hr 02/25/20 20:00 02/25/20 20:01 02/26/20 00:00 Temperature 98.0 F 97.8 F Pulse Rate 86 86 Respiratory Rate 20 20 Blood Pressure 149/67 H 144/66 H Pulse Oximetry 94 99 98 02/26/20 04:00 02/26/20 08:00 02/26/20 08:15 Temperature 98.0 F 97.9 F Pulse Rate 60 68 Respiratory Rate 22 H 20 Blood Pressure 166/82 H 163/71 H Pulse Oximetry 100 90 90 02/26/20 08:21 02/26/20 12:00 02/26/20 16:00 Temperature 97.5 F L 97.5 F L Pulse Rate 72 71 66 Respiratory Rate 20 20 Blood Pressure 139/67 152/71 H Pulse Oximetry 90 91 Intake/Output Intake/Output: Intake & Output 02/23/20 02/24/20 02/25/20 02/26/20 23:59 23:59 23:59 23:59 Intake Total 340 3010 1780 980 Output Total 800 1000 400 Balance 340 2210 780 580 Meds/Results Medications: Active Medications Generic Name Dose Route Start Last Admin Trade Name Freq PRN Reason Stop Dose Admin Acetaminophen 650 mg 02/24/20 15:46 02/25/20 10:59 Acetaminophen 325 Mg Tablet PO 650 mg Q4H PRN Administration Pain Rated 5 Or Less or Fever Hydrocodone Bitart/Acetaminophen 1 tab 02/24/20 15:46 Hydrocodone/Acetaminophen (*Crx) 5-325 Mg Tablet PO Q4H PRN Pain Rated 6 or Greater Albuterol 2 puff 02/25/20 02:00 02/26/20 14:09 Albuterol Sulfate (*Sp) Inhaler INHALATION 2 puff Q6HRT KULWINDER Administration Atenolol 12.5 mg 02/24/20 09:00 02/26/20 08:21 Atenolol 12.5 Mg Tablet PO 12.5 mg DAILY KULWINDER Administration Atorvastatin Calcium 40 mg 02/25/20 09:00 02/26/20 08:20 Atorvastatin 40 Mg Tablet PO 40 mg DAILY KULWINDER Administration Benzonatate 100 mg 02/25/20 09:05 02/26/20 12:43 Benzonatate 100 Mg Capsule PO 100 mg TID KULWINDER Administration Brimonidine Tartrate 1 drop 02/24/20 09:00 02/26/20 08:21 Brimonidine Tartrate 0.15% 5 Ml Ophth Soln EACH EYE 1 drop BID KULWINDER Administration Calcium Carbonate 200 mg 02/24/20 15:41 Calcium Carbonate (Tums) 500 Mg (200 Mg Elemental) PO Q6H PRN Indigestion Clopidogrel Bisulfate 75 mg 02/24/20 09:00 02/26/20 08:20 Clopidogrel Bisulfate 75 Mg Tablet PO 75 mg DAILY KULWINDER Administration Dexamethasone Sodium Phosphate 6 mg 02/24/20 09:00 02/26/20 08:21 Dexamethasone Sod Phos Inj 4 Mg/Ml Vial IV PUSH 03/04/20 09:01 6 mg DAILY KULWINDER Administration Dextrose 12.5 gm 02/23/20 23:58 Dextrose 50% 25 Gm/50 Ml Syringe IV PUSH PRN PRN Hypoglycemia Protocol Enoxaparin Sodium 40 mg 02/24/20 21:00 02/26/20 08:20 Enoxaparin 40 Mg/0.4 Ml Syringe SUB-Q 40 mg Q12HR KULWINDER Administration Finasteride 5 mg 02/25/20 09:00 02/26/20 08:20 Finasteride 5 Mg Tablet PO 5 mg QAM KULWINDER Administration Fluticasone Propionate 1 spray 02/24/20 09:00 02/26/20 08:21 Fluticasone Propionate 0.05% Na Spr 16 Gm Btl (*Bkc) NASAL 03/25/20 09:01 1 spray DAILY KULWINDER Administration Glucagon 1 mg 02/23/20 23:58 Glucagon For Inj 1 Mg Vial IM PRN PRN Hypoglycemia Protocol Glucose 15 gm 02/23/20 23:58 Glucose Oral Gel 15 Gm Of Glucse In 37.5 Gm Tube PO PRN PRN Hypoglycemia Protocol Guaifenesin/Dextromethorphan 10 ml 02/24/20 00:04 02/26/20 14:10 Guaifenesin/Dextromethorphan 10 Ml Udc PO 10 ml Q4H PRN Administration Cough Hydrochlorothiazide 25 mg 02/24/20 09:00 02/26/20 08:20 Hydrochlorothiazide 25 Mg Tablet PO 25 mg DAILY KULWINDER Administration Remdesivir 100 mg in 250 mls @ 250 mls/hr 02/24/20 22:00 02/25/20 23:07 IVPB 02/28/20 22:01 250 mls/hr Q24H KULWINDER Administration Dextrose 1,000 mls @ 100 mls/hr 02/23/20 23:58 Dextrose 5% 1,000 Ml IVPB PRN PRN Hypoglycemia Protocol Insulin Aspart 3 - 6 units 02/26/20 17:00 Insulin Aspart (*Bkc) 100 Units/Ml SUB-Q TIDWM KULWINDER Protocol Latanoprost 1 drop 02/24/20 00:20
[2020-02-26] MEDS: LOSARTAN POTASSIUM 100 MG TABLET PO (17:22)
[2020-02-26] MEDS: CALCIUM CARBONATE (TUMS) 500 MG (200 MG ELEMENTAL) PO (17:23)
[2020-02-26] MEDS: SALINE 0.65% NAS SOLN 44 ML BTL 1 SPRAY NASAL (17:28)
[2020-02-26 17:33] LABS: Glucose Point of Care 278 (65-105)
[2020-02-26] MEDS: LATANOPROST 0.005% OP SOLN 2.5 ML BTL 1 DROP EACH EYE (21:32)
[2020-02-26 21:43] LABS: Glucose Point of Care 218 (65-105)
[2020-02-26] MEDS: REMDESIVIR 100 MG/NS 250 ML 100 MG/250 ML BAG 250 MG IVPB (22:24)
[2020-02-27] VITALS (8 sets, daily range): BP systolic 146–171; BP diastolic 65–78; PULSE 61–80; RESP 18–22; TEMP 36.6–37.3; O2SAT 90–99
[2020-02-27] MEDS: ALBUTEROL SULFATE (*SP) INHALER 2 PUFF INHALATION ×4 (02:13→20:52)
[2020-02-27] MEDS: ACETAMINOPHEN 325 MG TABLET 650 MG PO (03:13)
[2020-02-27] MEDS: SALINE 0.65% NAS SOLN 44 ML BTL 1 SPRAY NASAL (03:15)
[2020-02-27 06:41] LABS: Basophils Percent Auto 0.2 % (0.2-1.2); Hematocrit 40.6 % (42.0-52.0); Hemoglobin 14.2 g/dL (14.0-18.0); Immature Granulocyte Absolute 0.13 K/mm3 (0.00-0.031); Lymphocytes Absolute Auto 0.79 K/mm3 (0.9-3.2); Lymphocytes Percent Auto 6.3 % (18.3-44.2); Mean Corpuscular Hemoglobin 29.5 pg (26-34); Mean Corpuscular Volume 84.2 fl (80-100); Mean Platelet Volume 10.7 fl (7.4-10.4); Monocytes Absolute Auto 1.8 K/mm3 (0.1-0.6); Monocytes Percent Auto 14.1 % (2.6-8.5); Neutrophils Absolute Auto 9.9 K/mm3 (1.3-6.7); Neutrophils Percent Auto 78.4 % (45.5-73.1); Platelet Count Result 239 k/mm3 (150-375); Red Blood Count 4.82 M/mm3 (4.6-6.20); Red Cell Distribution Width 12.4 % (11.5-14.5); White Blood Count 12.6 K/mm3 (4.5-10.0)
[2020-02-27 06:55] LABS: Alanine Aminotransferase 43 U/L (4-50); Albumin Level 3.4 g/dL (3.5-5.1); Alkaline Phosphatase 117 U/L (38-126); Anion Gap 8 mmol/L (8-16); Aspartate Amino Transferase 53 U/L (17-59); Bilirubin,Total 1.1 mg/dL (0.2-1.3); Blood Urea Nitrogen 35 mg/dL (9-20); CRP 4.4 mg/dL (<1.0); Calcium 8.7 mg/dL (8.4-10.2); Carbon Dioxide 27 mmol/L (22-30); Chloride 99 mmol/L (98-107); Estimated CRCL calculation 47 ml/min; Estimated Glomerular Filt Rate > 60; Glucose 178 mg/dL (75-110); Magnesium 1.7 mg/dL (1.6-2.3); Potassium 3.8 mmol/L (3.4-5.0); Sodium 134 mmol/L (137-145)
[2020-02-27 08:39] LABS: Glucose Point of Care 181 (65-105)
[2020-02-27] MEDS: FLUTICASONE/SALMETEROL 115-21 MCG (*SP) INHALER 2 PUFF INHALATION ×2 (09:18→20:53)
[2020-02-27] MEDS: CLOPIDOGREL BISULFATE 75 MG TABLET PO (09:19)
[2020-02-27] MEDS: hydroCHLOROthiazide 25 MG TABLET PO (09:20)
[2020-02-27] MEDS: ENOXAPARIN 40 MG/0.4 ML SYRINGE SUB-Q ×2 (09:20→20:53)
[2020-02-27] MEDS: metFORMIN HCL 500 MG TABLET PO ×2 (09:20→18:44)
[2020-02-27] MEDS: atenoloL 12.5 MG TABLET PO (09:20)
[2020-02-27] MEDS: ATORVASTATIN 40 MG TABLET PO (09:20)
[2020-02-27] MEDS: BENZONATATE 100 MG CAPSULE PO ×3 (09:20→18:44)
[2020-02-27] MEDS: FINASTERIDE 5 MG TABLET PO (09:21)
[2020-02-27] MEDS: DEXAMETHASONE SOD PHOS INJ 4 MG/ML VIAL 6 MG IV PUSH (09:21)
[2020-02-27] MEDS: CHOLECALCIFEROL 1,000 UNITS TABLET 3000 UNITS PO (09:21)
[2020-02-27] MEDS: MULTIVITAMINS THERAPEUTIC TAB (*BKC) 1 TABLET PO (09:21)
[2020-02-27] MEDS: BRIMONIDINE TARTRATE 0.15% 5 ML OPHTH SOLN 1 DROP EACH EYE ×2 (09:21→18:44)
[2020-02-27] MEDS: PANTOPRAZOLE 40 MG TABLET PO (09:22)
[2020-02-27] MEDS: FLUTICASONE PROPIONATE 0.05% NA SPR 16 GM BTL (*BKC) 1 SPRAY NASAL (09:22)
[2020-02-27] MEDS: guaiFENesin/DEXTROMETHORPHAN 10 ML UDC PO (09:24)
[2020-02-27] MEDS: HYDROcodone/acetaminophen (*CRX) 5-325 MG TABLET 1 TAB PO ×2 (09:37→22:53)
[2020-02-27 12:39] LABS: Glucose Point of Care 265 (65-105)
[2020-02-27] MEDS: INSULIN ASPART (*BKC) 100 UNITS/ML SUB-Q ×3 (13:00→22:25)
--- NOTE | 2020-02-27 14:58 | PM.IMPN ---
Progress Note: A&P Assessment and Plan (1) COVID-19: Code(s): U07.1 - COVID-19 Status: Acute Assessment and Plan: COVID positive 02/21/20. -Continue dexamethasone and Remdesivir, day 5 -Continue supplemental O2 and wean as tolerated to keep O2 saturations near 90-95%. -Continue supportive care with Tylenol for fevers, albuterol MDI, Robitussin, incentive spirometer. -leukocytosis likely due to dexamethasone, do not suspect secondary bacterial infection. Blood cultures negative (2) Acute respiratory failure: Qualifiers: Respiratory failure complication: hypoxia Qualified Code(s): J96.01 - Acute respiratory failure with hypoxia Code(s): J96.00 - Acute respiratory failure, unspecified whether with hypoxia or hypercapnia Status: Acute Assessment and Plan: Secondary to COVID pneumonia. See above. 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 See above. 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 Continue home metformin. Continue to monitor with accu-cheks and adjust treatment as needed, cover with SSI. (5) BPH (benign prostatic hyperplasia): Qualifiers: Lower urinary tract symptom presence: symptoms absent Qualified Code(s): N40.0 - Benign prostatic hyperplasia without lower urinary tract symptoms Code(s): N40.0 - Benign prostatic hyperplasia without lower urinary tract symptoms Status: Chronic Assessment and Plan: Continue with finasteride. (6) Coronary artery disease: Qualifiers: Coronary Disease-Associated Artery/Lesion type: [place] artery [place] vs. transplanted heart: [place] heart Associated angina: without angina Qualified Code(s): I25.10 - Atherosclerotic heart disease of [place] coronary artery without angina pectoris Code(s): I25.10 - Atherosclerotic heart disease of [place] coronary artery without angina pectoris Status: Chronic Assessment and Plan: History of 2 coronary stents. -Continue home Plavix. -Stable, no chest pain. (7) Hypertension: Qualifiers: Hypertension type: essential hypertension Qualified Code(s): I10 - Essential (primary) hypertension Code(s): I10 - Essential (primary) hypertension Status: Chronic Assessment and Plan: Last blood pressure 146/76 -Continue with atenolol, losartan and hydrochlorothiazide (8) Hyperlipidemia: Qualifiers: Hyperlipidemia type: unspecified Qualified Code(s): E78.5 - Hyperlipidemia, unspecified Code(s): E78.5 - Hyperlipidemia, unspecified Status: Chronic Assessment and Plan: Chronic (9) Chronic GERD: Code(s): K21.9 - Gastro-esophageal reflux disease without esophagitis Status: Chronic Assessment and Plan: Stable -Tums p.r.n. Time Spent With Patient Time with patient: 25 - 35 minutes Subjective Date/time seen: 02/27/20 14:58 Interval history: Pt is an 84-year-old male here for COVID-19. Patient was seen today and states he is doing better today than he was yesterday. He does not feel short of breath at rest but does feel short of breath when he gets up and moves. His co
[2020-02-27 17:44] LABS: Glucose Point of Care 258 (65-105)
[2020-02-27] MEDS: LOSARTAN POTASSIUM 100 MG TABLET PO (18:45)
[2020-02-27] MEDS: LATANOPROST 0.005% OP SOLN 2.5 ML BTL 1 DROP EACH EYE (20:53)
[2020-02-27 21:56] LABS: Glucose Point of Care 345 (65-105)
[2020-02-27] MEDS: REMDESIVIR 100 MG/NS 250 ML 100 MG/250 ML BAG 250 MG IVPB (22:04)
[2020-02-27] MEDS: INSULIN GLARGINE (*BKC) 100 UNITS/ML 10 UNITS SUB-Q (22:24)
[2020-02-28] VITALS (15 sets, daily range): BP systolic 141–169; BP diastolic 63–77; PULSE 60–89; RESP 20–24; TEMP 36.4–37.1; O2SAT 77–97
[2020-02-28] MEDS: ALBUTEROL SULFATE (*SP) INHALER 2 PUFF INHALATION ×4 (01:28→20:10)
[2020-02-28] MEDS: ACETAMINOPHEN 325 MG TABLET 650 MG PO (06:46)
[2020-02-28 07:14] LABS: Hematocrit 41.3 % (42.0-52.0); Hemoglobin 14.7 g/dL (14.0-18.0); Mean Corpuscular HGB Conc 35.6 g/dl (32-36); Mean Corpuscular Hemoglobin 30.5 pg (26-34); Mean Corpuscular Volume 85.7 fl (80-100); Mean Platelet Volume 10.6 fl (7.4-10.4); Platelet Count Result 221 k/mm3 (150-375); Red Blood Count 4.82 M/mm3 (4.6-6.20); Red Cell Distribution Width 12.4 % (11.5-14.5); White Blood Count 13.9 K/mm3 (4.5-10.0)
[2020-02-28 07:27] LABS: Alanine Aminotransferase 41 U/L (4-50); Albumin Level 3.3 g/dL (3.5-5.1); Alkaline Phosphatase 130 U/L (38-126); Anion Gap 8 mmol/L (8-16); Aspartate Amino Transferase 45 U/L (17-59); Bilirubin,Total 1.2 mg/dL (0.2-1.3); Blood Urea Nitrogen 32 mg/dL (9-20); Calcium 8.8 mg/dL (8.4-10.2); Carbon Dioxide 25 mmol/L (22-30); Chloride 100 mmol/L (98-107); Estimated CRCL calculation 47 ml/min; Estimated Glomerular Filt Rate > 60; Glucose 145 mg/dL (75-110); Potassium 3.7 mmol/L (3.4-5.0); Sodium 133 mmol/L (137-145)
[2020-02-28 08:07] LABS: Glucose Point of Care 162 (65-105)
[2020-02-28] MEDS: BRIMONIDINE TARTRATE 0.15% 5 ML OPHTH SOLN 1 DROP EACH EYE ×2 (08:57→17:37)
[2020-02-28] MEDS: FLUTICASONE PROPIONATE 0.05% NA SPR 16 GM BTL (*BKC) 1 SPRAY NASAL (08:57)
[2020-02-28] MEDS: CLOPIDOGREL BISULFATE 75 MG TABLET PO (08:58)
[2020-02-28] MEDS: PANTOPRAZOLE 40 MG TABLET PO (08:58)
[2020-02-28] MEDS: FINASTERIDE 5 MG TABLET PO (08:58)
[2020-02-28] MEDS: hydroCHLOROthiazide 25 MG TABLET PO (08:58)
[2020-02-28] MEDS: CHOLECALCIFEROL 1,000 UNITS TABLET 3000 UNITS PO (08:58)
[2020-02-28] MEDS: MULTIVITAMINS THERAPEUTIC TAB (*BKC) 1 TABLET PO (08:58)
[2020-02-28] MEDS: metFORMIN HCL 500 MG TABLET PO ×2 (08:58→17:36)
[2020-02-28] MEDS: ENOXAPARIN 40 MG/0.4 ML SYRINGE SUB-Q ×2 (08:58→20:10)
[2020-02-28] MEDS: DEXAMETHASONE SOD PHOS INJ 4 MG/ML VIAL 6 MG IV PUSH (08:58)
[2020-02-28] MEDS: atenoloL 12.5 MG TABLET PO (08:59)
[2020-02-28] MEDS: ATORVASTATIN 40 MG TABLET PO (08:59)
[2020-02-28] MEDS: BENZONATATE 100 MG CAPSULE PO ×3 (08:59→17:36)
[2020-02-28] MEDS: FLUTICASONE/SALMETEROL 115-21 MCG (*SP) INHALER 2 PUFF INHALATION ×2 (09:00→20:09)
[2020-02-28] MEDS: INSULIN ASPART (*BKC) 100 UNITS/ML SUB-Q ×2 (11:53→17:36)
[2020-02-28 12:28] LABS: Glucose Point of Care 324 (65-105)
--- NOTE | 2020-02-28 14:29 | PM.IMPN ---
Progress Note: A&P Assessment and Plan (1) COVID-19: Code(s): U07.1 - COVID-19 Status: Acute Assessment and Plan: COVID positive 02/21/20. -Requiring more o2 today. Repeat CXR is stable. Inflammatory markers worsening. Patient feels okay but looks little worse -Continue dexamethasone and Remdesivir -Continue supplemental O2 and wean as tolerated to keep O2 saturations >90% -Continue supportive care with Tylenol for fevers, albuterol MDI, Robitussin, incentive spirometer. -leukocytosis likely due to dexamethasone, do not suspect secondary bacterial infection. Blood cultures negative (2) Acute respiratory failure: Qualifiers: Respiratory failure complication: hypoxia Qualified Code(s): J96.01 - Acute respiratory failure with hypoxia Code(s): J96.00 - Acute respiratory failure, unspecified whether with hypoxia or hypercapnia Status: Acute Assessment and Plan: Secondary to COVID pneumonia. See above. 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 See above. 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 Continue home metformin. Continue to monitor with accu-cheks and adjust treatment as needed, cover with SSI. (5) BPH (benign prostatic hyperplasia): Qualifiers: Lower urinary tract symptom presence: symptoms absent Qualified Code(s): N40.0 - Benign prostatic hyperplasia without lower urinary tract symptoms Code(s): N40.0 - Benign prostatic hyperplasia without lower urinary tract symptoms Status: Chronic Assessment and Plan: Continue with finasteride. (6) Coronary artery disease: Qualifiers: Associated angina: without angina Coronary Disease-Associated Artery/Lesion type: [place] artery [place] vs. transplanted heart: [place] heart Qualified Code(s): I25.10 - Atherosclerotic heart disease of [place] coronary artery without angina pectoris Code(s): I25.10 - Atherosclerotic heart disease of [place] coronary artery without angina pectoris Status: Chronic Assessment and Plan: History of 2 coronary stents. -Continue home Plavix. -Stable, no chest pain. (7) Hypertension: Qualifiers: Hypertension type: essential hypertension Qualified Code(s): I10 - Essential (primary) hypertension Code(s): I10 - Essential (primary) hypertension Status: Chronic Assessment and Plan: Last blood pressure 148/71 -Continue with atenolol, losartan and hydrochlorothiazide (8) Hyperlipidemia: Qualifiers: Hyperlipidemia type: unspecified Qualified Code(s): E78.5 - Hyperlipidemia, unspecified Code(s): E78.5 - Hyperlipidemia, unspecified Status: Chronic Assessment and Plan: Chronic (9) Chronic GERD: Code(s): K21.9 - Gastro-esophageal reflux disease without esophagitis Status: Chronic Assessment and Plan: Stable -Tums p.r.n. Subjective Date/time seen: 02/28/20 14:29 Interval history: Pt is an 84-year-old male here for COVID-19. Patient was seen today and states he feels the same as yesterday although he appears a little worse to me. His
[2020-02-28 17:24] LABS: Glucose Point of Care 316 (65-105)
[2020-02-28] MEDS: LOSARTAN POTASSIUM 100 MG TABLET PO (17:36)
[2020-02-28] MEDS: PHENOL/SOD PHENO SPRAY CHERRY (*BKC) 1 SPRAY MUCOUS MEM (17:42)
[2020-02-28] MEDS: LATANOPROST 0.005% OP SOLN 2.5 ML BTL 1 DROP EACH EYE (20:10)
[2020-02-28] MEDS: INSULIN GLARGINE (*BKC) 100 UNITS/ML 10 UNITS SUB-Q (20:10)
[2020-02-28] MEDS: guaiFENesin 12 HR 600 MG TABCR PO (20:19)
[2020-02-28] MEDS: MELATONIN 5 MG TABLET PO (20:23)
[2020-02-28] MEDS: HYDROcodone/acetaminophen (*CRX) 5-325 MG TABLET 1 TAB PO (20:23)
[2020-02-28] MEDS: REMDESIVIR 100 MG/NS 250 ML 100 MG/250 ML BAG 250 MG IVPB (22:13)
[2020-02-28 22:43] LABS: Glucose Point of Care 243 (65-105)
[2020-02-29] VITALS (13 sets, daily range): BP systolic 125–184; BP diastolic 71–88; PULSE 80–109; RESP 20–50; TEMP 36.6–37.1; O2SAT 85–98
[2020-02-29] MEDS: ALBUTEROL SULFATE (*SP) INHALER 2 PUFF INHALATION ×3 (01:46→13:00)
[2020-02-29] MEDS: ALBUTEROL SULFATE (*SP) AEROSOL 1 PUFF 2 PUFF INHALATION (02:42)
[2020-02-29] MEDS: LORazepam (*CRX) 0.5 MG TABLET PO (02:43)
[2020-02-29 02:56] LABS: Fractional Inspired Oxygen 100 %; Oxygen Content ABG 19.3 %vol (16.0-22.0); PCO2 ABG 28.4 mmHg (35.0-45.0); PO2 ABG 56.6 mmHg (80.0-100.0); PO2 FiO2 Ratio Arterial Blood 0.57 %; Total Hemoglobin 15.3 g/dL (12.0-18.0); pH ABG 7.486 (7.350-7.450)
[2020-02-29] MEDS: SALINE 0.65% NAS SOLN 44 ML BTL 1 SPRAY NASAL (02:56)
[2020-02-29 02:57] LABS: Device NON-REBREATHER MASK; Modified Allen's Test Pass; Site Drawn LEFT RADIAL
--- NOTE | 2020-02-29 03:05 | PC.NURSE ---
0140 PT C/O HAVING A HARD TIME BREATHING IN AND OUT. SAT 98,RR 20, NO CHANGE IN LUNG ASSESSMENT, SCHEDULED INHALER GIVEN 0150 PT STATES SOME BETTER. 0225 PT CON'T TO C/O DIFFICULTY BREATHING, SAT AND RESP. RATE ESSENTIALLY UNCHANGED. CALL PLACED TO DR. ZACARIAS, ORDERS RECEIVED.
--- NOTE | 2020-02-29 03:45 | PC.NURSE ---
PT REPEATEDLY REMOVES NONREBREATHER CAUSING O2 SATS TO LOOWER TO MID 80S, REINFORCED NEED TO LEAVE MASK ON. PT RESTING AT TIMES. RR 20-24.
[2020-02-29] MEDS: LORazepam INJ (*CRX) 2 MG/ML VIAL 0.5 MG IV PUSH ×3 (05:57→14:37)
[2020-02-29 06:54] LABS: Basophils Percent Auto 0.3 % (0.2-1.2); Hematocrit 43.9 % (42.0-52.0); Hemoglobin 15.3 g/dL (14.0-18.0); Immature Granulocyte Absolute 0.12 K/mm3 (0.00-0.031); Immature Granulocyte Percent A 0.9 % (0-0.5); Immature Platelet Fraction Pct 8.3 % (0.9-11.2); Lymphocytes Absolute Auto 0.27 K/mm3 (0.9-3.2); Mean Corpuscular HGB Conc 34.9 g/dl (32-36); Mean Corpuscular Hemoglobin 29.5 pg (26-34); Mean Corpuscular Volume 84.7 fl (80-100); Mean Platelet Volume 11.6 fl (7.4-10.4); Monocytes Absolute Auto 0.8 K/mm3 (0.1-0.6); Monocytes Percent Auto 5.9 % (2.6-8.5); Neutrophils Absolute Auto 12.4 K/mm3 (1.3-6.7); Neutrophils Percent Auto 90.9 % (45.5-73.1); Platelet Count Result 180 k/mm3 (150-375); Red Blood Count 5.18 M/mm3 (4.6-6.20); Red Cell Distribution Width 12.5 % (11.5-14.5); White Blood Count 13.6 K/mm3 (4.5-10.0)
--- NOTE | 2020-02-29 07:04 | PC.NURSE ---
0603 SPOKE WITH ROGER(SON) ABOUT PT STATUS CHANGE, WISHES THAT PT BE PUT ON COMFORT MEASURES/HOSPICE.
[2020-02-29 07:53] LABS: Burr Cells 2+ (NORMAL); Crenated RBC 2+ (NORMAL); Large Platelets Present; Ovalocytes 1+ (NORMAL); Platelet Estimate Adequate (Adequate)
[2020-02-29 08:01] LABS: Alveolar/Arterial O2 Gradient 642.8 mmHg; Base Excess ABG -1.8 mEq/l (+/-2.0); Fractional Inspired Oxygen 100 %; HCO3 ABG 19.2 mEq/l (22.0-26.0); Oxygen Content ABG 18.7 %vol (16.0-22.0); Oxyhemoglobin 84.1 % THb (90.0-100.0); PCO2 ABG 24.7 mmHg (35.0-45.0); PO2 FiO2 Ratio Arterial Blood 0.46 %; Total Hemoglobin 15.9 g/dL (12.0-18.0); pH ABG 7.508 (7.350-7.450)
[2020-02-29 08:03] LABS: Modified Allen's Test Pass; Oxygen Saturation ABG 86.6 % (95.0-100.0); PO2 ABG 45.5 mmHg (80.0-100.0); Site Drawn LEFT RADIAL
[2020-02-29 08:04] LABS: Device HIGH FLOW NASAL CANN
[2020-02-29] MEDS: DEXAMETHASONE SOD PHOS INJ 4 MG/ML VIAL 6 MG IV PUSH (08:25)
[2020-02-29] MEDS: BENZONATATE 100 MG CAPSULE PO (08:25)
[2020-02-29] MEDS: MULTIVITAMINS THERAPEUTIC TAB (*BKC) 1 TABLET PO (08:25)
[2020-02-29] MEDS: metFORMIN HCL 500 MG TABLET PO (08:26)
[2020-02-29] MEDS: FINASTERIDE 5 MG TABLET PO (08:26)
[2020-02-29] MEDS: PANTOPRAZOLE 40 MG TABLET PO (08:26)
[2020-02-29] MEDS: CLOPIDOGREL BISULFATE 75 MG TABLET PO (08:26)
[2020-02-29] MEDS: ENOXAPARIN 40 MG/0.4 ML SYRINGE SUB-Q (08:26)
[2020-02-29] MEDS: CHOLECALCIFEROL 1,000 UNITS TABLET 3000 UNITS PO (08:26)
[2020-02-29] MEDS: FLUTICASONE/SALMETEROL 115-21 MCG (*SP) INHALER 2 PUFF INHALATION (08:26)
[2020-02-29] MEDS: BRIMONIDINE TARTRATE 0.15% 5 ML OPHTH SOLN 1 DROP EACH EYE (08:26)
[2020-02-29] MEDS: hydroCHLOROthiazide 25 MG TABLET PO (08:26)
[2020-02-29] MEDS: guaiFENesin 12 HR 600 MG TABCR PO (08:26)
[2020-02-29] MEDS: ATORVASTATIN 40 MG TABLET PO (08:26)
[2020-02-29] MEDS: FLUTICASONE PROPIONATE 0.05% NA SPR 16 GM BTL (*BKC) 1 SPRAY NASAL (08:26)
[2020-02-29] MEDS: atenoloL 12.5 MG TABLET PO (08:27)
[2020-02-29 09:07] LABS: Glucose Point of Care 192 (65-105)
--- NOTE | 2020-02-29 09:11 | PCRCNOTE ---
Pt placed on 40L 80% HHFNC at this time. Pt was also asked to lay prone and he did. There is a sitter at bedside. Will continue to monitor.
[2020-02-29 09:29] LABS: Lactic Acid Reflex 2.8 mmol/L (0.7-2.1)
[2020-02-29 09:58] LABS: Alanine Aminotransferase 40 U/L (4-50); Albumin Level 3.1 g/dL (3.5-5.1); Alkaline Phosphatase 188 U/L (38-126); Anion Gap 10 mmol/L (8-16); Aspartate Amino Transferase 45 U/L (17-59); Bilirubin,Total 1.2 mg/dL (0.2-1.3); Blood Urea Nitrogen 33 mg/dL (9-20); CRP 19.9 mg/dL (<1.0); Calcium 8.7 mg/dL (8.4-10.2); Carbon Dioxide 24 mmol/L (22-30); Chloride 102 mmol/L (98-107); Estimated CRCL calculation 43 ml/min; Estimated Glomerular Filt Rate > 60; Glucose 189 mg/dL (75-110); Potassium 3.9 mmol/L (3.4-5.0); Sodium 136 mmol/L (137-145)
[2020-02-29] MEDS: MORPHINE SULFATE (*CRX) 2 MG/ML INJ 0.5 MG IV PUSH ×2 (10:20→11:18)
[2020-02-29 10:35] LABS: Alveolar/Arterial O2 Gradient 490.8 mmHg; Base Excess ABG -1.4 mEq/l (+/-2.0); Carboxyhemoglobin 0.3 % THb (0-2.0); Fractional Inspired Oxygen 80 %; HCO3 ABG 20.8 mEq/l (22.0-26.0); Methemoglobin ABG 0.3 %THb (0-1.5); Oxygen Content ABG 18.1 %vol (16.0-22.0); Oxygen Saturation ABG 87.9 % (95.0-100.0); Oxyhemoglobin 85.6 % THb (90.0-100.0); PO2 FiO2 Ratio Arterial Blood 0.62 %; Reduced Hemoglobin 13.8 %THb (0-5.0); Total Hemoglobin 15.1 g/dL (12.0-18.0); pH ABG 7.474 (7.350-7.450)
[2020-02-29 10:37] LABS: Device HIGH FLOW THERAPY; PO2 ABG 49.2 mmHg (80.0-100.0); Site Drawn LEFT BRACHIAL
[2020-02-29 11:41] LABS: Lactate Dehydrogenase 2131 U/L (313-618)
--- NOTE | 2020-02-29 12:06 | PM.EVENT ---
Event Note Event Note Event Note: Patient status worsened 02/29/20. Inflammatory markers, chest x-ray, and oxygen requirements are worse today. Patient is hypoxic which is making him restless and pulling off his oxygen. We have tried multiple doses of Ativan and morphine to help calm him down. He continued to worsen with respiratory rate of 50 and oxygen saturation of 86. ABG showing significant hypoxia. Patient states he does not want to be intubated. I spoke with the stepson who is going to come up to the hospital and proceed with hospice/comfort care. Care coordination informed of the hospice consult. Will wait to see if he qualifies for inpatient status which I assume he will with his condition. Patient's condition appears terminal General: Elderly patient restless in bed in respiratory distress Neuro: Alert and oriented to himself and location. Follows commands as in squeezing my fingers and wiggling his toes HEENT: Dry mucous membranes CV: Tachycardic Resp: Tachypneic with high-flow oxygen and oxygen saturation 86% Abd: Soft, non-distended. No palpable pain in all four quadrants. Positive bowel sounds. Extremities: no erythema or swelling of the lower extremities Supervising physician notified. morphine and Ativan ordered for comfort care
[2020-02-29 12:16] LABS: Reflex Lactic Acid Yes or No Add Lactic
[2020-02-29 12:17] LABS: Glucose Point of Care 201 (65-105)
[2020-02-29] MEDS: INSULIN ASPART (*BKC) 100 UNITS/ML SUB-Q (12:50)
[2020-02-29 13:18] LABS: Lactic Acid 2.4 mmol/L (0.7-2.1)
--- NOTE | 2020-02-29 15:21 | PM.DS ---
DS: Admitting Diagnosis Admitting Diagnosis Admitting Diagnosis: COVID DS: Discharge Diagnosis Discharge Diagnosis (1) COVID-19: Code(s): U07.1 - COVID-19 Status: Acute Assessment and Plan: COVID positive 02/21/20. -patient was on dexamethasone and finished Remdesivir but unfortunately continued to worsen -his CRP, chest x-ray and oxygen requirements worsened and he was on high-flow oxygen and still in the 80% oxygen saturation -I spoke to the patient prior and during this time and he did not want to be intubated and understood that he had a very poor prognosis -I spoke to the stepson as well and they decided to do hospice -patient was discharged to inpatient hospice (2) Acute respiratory failure: Qualifiers: Respiratory failure complication: hypoxia Qualified Code(s): J96.01 - Acute respiratory failure with hypoxia Code(s): J96.00 - Acute respiratory failure, unspecified whether with hypoxia or hypercapnia Status: Acute Assessment and Plan: Secondary to COVID pneumonia. See above. 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 (5) BPH (benign prostatic hyperplasia): Qualifiers: Lower urinary tract symptom presence: symptoms absent Qualified Code(s): N40.0 - Benign prostatic hyperplasia without lower urinary tract symptoms Code(s): N40.0 - Benign prostatic hyperplasia without lower urinary tract symptoms Status: Chronic Assessment and Plan: Continue with finasteride. (6) Coronary artery disease: Qualifiers: Associated angina: without angina Coronary Disease-Associated Artery/Lesion type: [place] artery [place] vs. transplanted heart: [place] heart Qualified Code(s): I25.10 - Atherosclerotic heart disease of [place] coronary artery without angina pectoris Code(s): I25.10 - Atherosclerotic heart disease of [place] coronary artery without angina pectoris Status: Chronic Assessment and Plan: History of 2 coronary stents. -Continue home Plavix. (7) Hypertension: Qualifiers: Hypertension type: essential hypertension Qualified Code(s): I10 - Essential (primary) hypertension Code(s): I10 - Essential (primary) hypertension Status: Chronic Assessment and Plan: Last blood pressure 127/36 (8) Hyperlipidemia: Qualifiers: Hyperlipidemia type: unspecified Qualified Code(s): E78.5 - Hyperlipidemia, unspecified Code(s): E78.5 - Hyperlipidemia, unspecified Status: Chronic Assessment and Plan: Chronic (9) Chronic GERD: Code(s): K21.9 - Gastro-esophageal reflux disease without esophagitis Status: Chronic Assessment and Plan: Stable DS: Summary Hospital Course Hospital Course: Patient is a 84-year-old male who presented emergency room for COVID-19. Patient was initially Stable but required oxygen. He was on Decadron and completed 5 days of Remdesivir. During his illness, he slowly started to get worse. I talked to him about his wishes and he said he did not want to be on a ventilator. He required more and more oxygen and his chest x-ray was worse. The day of discharge his respiratory rate was 50 in his oxygen saturation was low around 80-90%. I
== END 2020-02-29 15:20 | disposition hospice, inpatient (51) | DRG 177 ==
LOC: ANHED 15:23 → ANH3MEDSUR 15:31
PROVIDERS: Emergency Medicine; Family Medicine; Nurse Practitioner; Physician Assistant; Admitting Provider Family Medicine; Emergency Provider Emergency Medicine; Visit Provider Physician Assistant
DX: U07.1 COVID-19 (principal); J12.82 Pneumonia due to coronavirus disease 2019; J96.01 Acute respiratory failure with hypoxia; J43.9 Emphysema, unspecified; E11.9 Type 2 diabetes mellitus without complications; N40.0 Benign prostatic hyperplasia without lower urinary tract symptoms; I25.10 Atherosclerotic heart disease of native coronary artery without angina pectoris; E78.5 Hyperlipidemia, unspecified; H40.9 Unspecified glaucoma; Z66 Do not resuscitate; K21.9 Gastro-esophageal reflux disease without esophagitis; Z95.5 Presence of coronary angioplasty implant and graft; Z86.73 Personal history of transient ischemic attack (TIA), and cerebral infarction without residual deficits; Z85.820 Personal history of malignant melanoma of skin; Z98.42 Cataract extraction status, left eye; Z98.41 Cataract extraction status, right eye
CPT/HCPCS: 36415; 36600; 71045; 80048; 80053; 80076; 82375; 82728; 82805; 83036; 83050; 83605; 83615; 83735; 83880; 84100; 84443; 84460; 85025; 85027; 85055; 86140; 86900; 86901; 87040; 87070; 87205; 93005; 93970; 94640; 96374; 97161; 97165; 97535; 99285; A9270; G0378; J1100; J1650; J1815; J1940; J2060; J2270; J2405; J3475

== ENCOUNTER 2020-02-29 15:00 | HOS | payer OTHER, SELFPAY ==
[2020-02-29 15:49] VITALS: BMI 24.0
[2020-02-29 15:58] VITALS: O2SAT 82
[2020-02-29] MEDS: MORPHINE SULFATE INJ (*CRX) 50 MG in SODIUM CHLORIDE 0.9% IV 95 ML IV CONT (16:25)
[2020-02-29] MEDS: LORazepam INJ (*CRX) 2 MG/ML VIAL 1 MG IV PUSH (16:44)
[2020-02-29] MEDS: MORPHINE SULFATE (*CRX) 2 MG/ML INJ 1 MG IV PUSH (18:11)
[2020-02-29 19:25] VITALS: O2SAT 81
[2020-02-29] MEDS: LORazepam INJ (*CRX) 2 MG/ML VIAL 4 MG IV PUSH (20:47)
[2020-02-29 22:00] VITALS: BP 137/80; PULSE 113; RESP 28; TEMP 36.6; O2SAT 80
[2020-03-01] VITALS (7 sets, daily range): BP systolic 127–142; BP diastolic 36–52; PULSE 33–84; RESP 12–36; TEMP 36.2–36.9; O2SAT 69–93
[2020-03-01] MEDS: LORazepam INJ (*CRX) 2 MG/ML VIAL 4 MG IV PUSH ×3 (01:24→15:35)
--- NOTE | 2020-03-01 07:40 | P.DN_ITS ---
Discharge Sum: Prov Provider Primary care physician: PHYSICIAN NOT ON STAFF Admitting provider: Stewart Gomez MD Discharge Sum: Diag Contributing Factors (1) Hospice care: (2) COVID-19: (3) Acute respiratory failure with hypoxia: (4) Diabetes: Discharge Sum: Summary Date and Time Date of admission: 02/29/20 15:21 Date of : 03/01/20 Time of : 19:15 Summary Details: Horacio Kaur is a 84 year old male who was previously admitted for COVID-19 pneumonia and received Remdesivir and Decadron but unfortunately failed to improve. The patient started requiring more and more oxygen and was very uncomfortable and was maxed out on available oxygen. Although he was getting worse, the patient did not want intubation or CPR. I spoke with family per sonally and they decided to go hospice. He qualified for inpatient hospice due to respiratory failure and uncontrolled restlessness. Patient peacefully 03/01/20 at 1915 Additional Data Confirmation of as documented by pronouncing clinician: no pulse Family: contacted Attending physician: Jessica Malin PA-C Was code activated?: No Autopsy requested?: No securities compliance examiner notified?: Yes Organ bank notified?: No Advance directives: Yes Hospice patient?: Yes
--- NOTE | 2020-03-01 08:10 | PM.IMHP ---
H&P: HPI History of Present Illness Date/Time: 03/01/20 08:10 Chief Complaint: COVID needing comfort care Narrative: Horacio Kaur is a 84 year old male who was previously admitted for COVID-19 pneumonia and received Remdesivir and Decadron but unfortunately failed to improve. The patient started requiring more and more oxygen and was very uncomfortable and was maxed out on available oxygen. Although he was getting worse, the patient did not want intubation or CPR. I spoke with family personally and they decided to go hospice. He qualified for inpatient hospice due to respiratory failure and uncontrolled restlessness. At the time my exam he does not answer questions. Review of Systems Review of Systems: All systems reviewed & are unremarkable except as noted in HPI and below PMFSH Past Medical History Medical History BPH (benign prostatic hyperplasia) Chronic GERD COPD (chronic obstructive pulmonary disease) Coronary artery disease Diabetes GERD (gastroesophageal reflux disease) Glaucoma History of CVA (cerebrovascular accident) Hyperlipidemia Hypertension Melanoma Surgical History Surgical History Cataract extraction status Bilateral H/O angioplasty 1994 and 1995. 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 The patient has to step children both boys and 1 in his 60s from heart attack. The patient stated that he has a daughter out there somehwere but he is not sure where she is. The patient retired from the [employer] and the work for [employer]. Who resides at [facility]. His son that is a stepson is a durable power attorney general and the patient tells me that he is a DNR. The patient never smoked he does not use any alcohol or illicit drugs. Smoking status: Never smoker Alcohol intake: never Substance use: never Gender identity (if verbalized by the patient): Male Spiritual care concerns: No Meds Home Medications and Allergies Home Medications Medication Instructions Recorded Confirmed Type Adult One Daily Multivitamin 1 tablet PO DAILY 02/23/20 02/29/20 History Flonase 1 spray EACHNARE DAILY 02/23/20 02/29/20 History ProAir HFA 2 puff Q4-6H PRN 02/23/20 02/29/20 History Vitamin D3 1 tablet PO DAILY 02/23/20 02/29/20 History atenolol 12.5 mg PO DAILY 02/23/20 02/29/20 History atorvastatin 40 mg PO DAILY 02/23/20 02/29/20 History brimonidine 1 drp OPHTHALMIC (EYE) BID 02/23/20 02/29/20 History clopidogrel [Plavix] 75 mg PO DAILY 02/23/20 02/29/20 History finasteride 0.5 mg PO DAILY 02/23/20 02/29/20 History fluticasone propion-salmeterol 1 inh INHALATION Q12H 02/23/20 02/29/20 History [Advair Diskus] hydrochlorothiazide 25 mg PO DAILY 02/23/20 02/29/20 History latanoprost 1 drp OPHTHALMIC (EYE) HS 02/23/20 02/29/20 History losartan 100 mg PO QPM 02/23/20 02/29/20 History melatonin 5 mg PO HS PRN 02/23/20 02/29/20 History metformin 500 mg PO BIDWM 02/23/20 02/29/20 History nitroglycerin [Nitrostat] 0.4 mg SUBLINGUAL Q5M PRN 02/23/20 02/29/20 History omeprazole 40 mg PO DAILY 02/23/20 02/29/20 History Allergies Allergy/AdvReac Type Severity Reaction Status Date / Time atropine Allergy Unknown Verified 02/23/20 16:34 Vital Signs Vital Signs - 24 hr 02/29/20 15:58 02/29/20 19:25 02/29/20 22:00 Temperature 97.9 F Pulse Rate 113 H Respiratory Ra
[2020-03-01] MEDS: MORPHINE SULFATE INJ (*CRX) 50 MG in SODIUM CHLORIDE 0.9% IV 95 ML IV CONT (16:34)
--- NOTE | 2020-03-01 19:25 | PC.NURSE ---
1914 PT TOOK LAST BREATHE, AFTER SHORT TIME PULSE STOPPED NO PUPIL REACTION NOTED.CALLED ANGELO CHARGE NURSE.
--- NOTE | 2020-03-01 19:53 | P.PNCROSS_ITS ---
Event Note Event Note Event Note: Cinder Worker advised me that this 84 year old male with COVID- 19+ who was on hospice at 19:15 hrs tonight.
--- NOTE | 2020-03-01 19:53 | PM.EVENT ---
Event Note Event Note Event Note: Web Manager advised me that this 84 year old male with COVID-19+ who was on hospice at 19:15 hrs tonight.
--- NOTE | 2020-03-01 22:27 | PC.NURSE ---
2144 IV AND BRANTLEY CATHETER REMOVED. PT'S BODY PREPARED AND PLACED IN A SHROUD. HOME CLOTH LAYER HERE TO CLAIM PT'S BODY.
== END 2020-03-01 22:00 | disposition expired | DRG 951 ==
PROVIDERS: Admitting Provider Internal Medicine; Visit Provider Physician Assistant
DX: Z51.5 Encounter for palliative care (principal); U07.1 COVID-19; J96.01 Acute respiratory failure with hypoxia; E11.9 Type 2 diabetes mellitus without complications
CPT/HCPCS: J2060; J2270